=== PATIENT | female | born 1965 | race Caucasian/White ===

== ENCOUNTER 2016-08-17 19:34 | Observation (INO) | payer OTHER ==
[~2016-08-17] VITALS: Ht 162.6 cm; Wt 81.3 kg
[2016-08-17 19:36] VITALS: BP 121/81; PULSE 101; RESP 18; O2SAT 96
--- NOTE | 2016-08-17 19:46 | ED.REPORT ---
HPI-Chest Pain 40 and Over Date of Service Aug 17, 2016 ED Provider: Fiorella Gaston MDdavi Shankar, a 50 y/o female presents to the ER with the complaint of an intermittent stabbing chest pain, onset this afternoon. She states that she has felt generally ill for the past few days. Associated symptoms include SOB, nausea and headache. She denies cough, vomiting, fever, chills, diaphoresis, extremity swelling, and any recent immobilization or travel. She is a former smoker, but admits that she smoked a cigarette last night as she is stressed from school. Her father at the age of 55 due to LA. Nursing Notes Stated Complaint: CHEST PAIN Chief Complaint: Chest Pain Nursing Notes Reviewed: Yes Allergies: Coded Allergies: No Known Allergies (Unverified , 08/17/16) Scheduled Aspirin (Aspirin) 325 Mg Tablet 325 MG PO DAILY Scheduled PRN Temazepam (Temazepam) 15 Mg Capsule 15 MG PO HS PRN PRN Insomnia Trazodone (Trazodone) 50 Mg Tablet 50 MG PO HS PRN PRN Insomnia General Time Seen by MD: 19:40 Chief Complaint Chest pain Hx Obtained From: Patient Arrived By: Walk-in Sudden in Onset?: No Onset Occurred: 5 days ago Context of Onset: At rest Symptom Duration: Intermittent Location: : Chest left Quality: Stabbing Radiation: : Neck Severity: Current: Severe Severity: Maximum: Severe Associated with: Reports: Fatigue, Fever, Nausea, Shortness of Breath, Weakness , Denies: Diaphoresis, Vomiting Similar Sx Previous: No Risk Factors )( CAD Risk Stratification No Diabetes mellitus, No Hypertension Past Medical History Past Medical History Denies: Diabetes mellitus, Hypertension Family History Pt's father due to a LA Reports: Sudden cardiac Smoking History Former Smoker Social History Pt smoked last night due to school stress Ambulatory Status Independent Review of Systems Constitutional: Reports: Malaise, Denies: Chills, Fever Respiratory: Reports: Shortness of breath Cardiovascular: Reports: Chest pain GI: Reports: Nausea, Denies: Vomiting Musculoskeletal: Denies: Extremity swelling Skin: Denies Diaphoresis Neurologic: Reports: Headache Complete sys rev & neg: except as marked. Physical Exam Initial Vital Signs Vital Signs (First) Date Time Temp Pulse Resp B/P Pulse Ox O2 Delivery O2 Flow Rate FiO2 08/17/16 19:36 36.7 101 18 121/81 96 Room Air Initial VS: Reviewed Head / Eyes: Atraumatic, Normocephalic, PERRL Neck: Supple, Non-tender, Full range of motion Back: No CVA tenderness Extremities: Vascular intact, Neuro intact, No swelling, No tenderness Skin: Warm, Dry, No cyanosis Neurologic: Alert, Oriented, Nonfocal General/Constitutional: Awake, Alert, No acute distress, Well appearing Respiratory / Chest: Breath sounds NL, Breath sounds = bilat, No respiratory distress, No rales, No rhonchi, No wheezing, No stridor, No chest tenderness Cardiovascular: Heart rate NL, Regular rhythm, Heart sounds NL, No murmurs, Peripheral circulation NL, Pulses = bilaterally, No gross BP differential Neck: Supple, Full range of motion, No swelling, Non-tender, No masses, No JVD Back: Inspection NL, Non-tender, No CVA tenderness Lower Extremity / Pelvis / MS: Inspection NL, No swelling, Non-tender, No erythema, No deformity, Neurologic intact, Vascular intact, No edema Right Thigh: Positive: Ecchymosis present, Erythema present, Tenderness present... Skin: Color NL, Warm, Dry, Turgor NL Interpretation & Diagnostics Lab Results Interpretation Result Diagram: 08/17/16194508/17/161945 Test 08/17/16 19:46 White Blood Count 6.6th/mm3 (3.8-10.1) Red Blood Count 4.45mil/mm3 (3.90-5.20) Hemoglobin 13.8g/dL (12.0-15.6) Hematocrit 40.1% (35.0-46.0) Mean Corpuscular Volume 90.1fL (81-100) Mean Corpuscular Hemoglobin 31.0pg (27.0-35.0) Mean Corpuscular Hemoglobin Concent 34.4% (32.0-37.0) Red Cell Distribution Width 12.7% (12.3-15.4) Platelet Count 267bil/L (150-400) Neutrophils (%) (Auto) 38.5% (40-74) Lymphocytes (%) (Auto) 49.6% (14-46) Monocytes (%) (Auto) 6.4% (4-12) Eosinophils (%) (Auto) 4.7% (0-5) Basophils (%) (Auto) 0.6% (0-3) Sodium Level 137mEq/L (134-144) Potassium Level 4.0mEq/L (3.5-5.2) Chloride Level 100mEq/L (97-108) Carbon Dioxide Level 21mmol/L (18-29) Blood Urea Nitrogen 19mg/dL (6-24) Creatinine 0.80mg/dL (0.57-1.00) Estimat Glomerular Filtration Rate 110mL/min (>59) Glucose Level 113mg/dL (60-99) Calcium Level 9.7mg/dL (8.5-10.1) Magnesium Level 2.1mg/dL (1.6-2.6) Total Bilirubin 0.3mg/dL (0.0-1.2) Aspartate Amino Transf (AST/SGOT) 19U/L (0-50) Alanine Aminotransferase (ALT/SGPT) 15U/L (0-32) Alkaline Phosphatase 54U/L (25-150) Troponin T < 0.010ug/L (0.0-0.011) Total Protein 7.4g/dL (6.4-8.4) Albumin 4.4g/dL (3.4-5.0) Hold Bob Top Tube Received (Received) ECG Interpretation ECG Interpretation: Sinus rhythm, rate 87 T wave inversions v1-v4, aVR and lead [address] elevations Time: 19:47 Interpreted by: ED physician X-Ray Chest Interpretation Chest Xray Interpretation: IMPRESSION: No acute disease. Dictated by: Lester Thomas M.D. on 08/17/2016 at 20:18 Approved by: Lester Thomas M.D. on 08/17/2016 at 20:19 View: AP & lat Interpretation / Wet Read by: Interpret - Radiologist Re-Eval/Medical Decision Med Decision/Clinical Course 50-year-old female with past medical history of hypertension, tobacco abuse, family history concerning for ACS here with chest pain. Differential diagnosis includes but is not limited to ST elevation LA versus non-ST elevation LA versus pneumonia versus PE. The patient is PERC negative, I do not feel she requires PE workup at this time, as she has no risk factors. Her EKG is concerning with T-wave inversions in V3, V4, V5. I do not have an old EKG to compare it to. Given this, and admitted her to the hospitalist. Her CBC, CMP, troponin were unremarkable. She is aware and amenable to admission. She took a full-strength aspirin earlier today. Time of Eval: 19:51 Re-Evaluation/Progress Note: Discussed need for admission. Patient is amenable to the plan. Time of Eval: 20:54 Re-Evaluation/Progress Note: Rechecked pt. Pt continued to complain of severe CP. Discussed all labs results and the plan to admit. Consultation : Referral / Consult Name: Randall Hooks MD Consulted With: Hospitalist Call Returned at: 21:10 Videotape Sales Representative: Agrees with eval, Agrees with plan, Accepts admit Counseled Regarding: Diagnosis, Lab results, Need for admission Discharge & Departure Primary Impression: Chest pain Disposition: ADMITTED TO HOSPITAL Discharge Condition All VS Reviewed: Yes Condition: Stable Referrals: Fior Wilder (PCP) Linnette Attestation Portions of this note were transcribed by Arabella Vail and Linnette De León. I, personally performed the history, physical exam and medical decision-making; I reviewed and confirmed the accuracy of the information in the transcribed note. Signed by Linnette Fernandez, 08/17/2016and 21:23 copies to: Fior Wilder Rebecca A MD Aug 17, 2016 19:46 Arabella Vail Aug 17, 2016 19:54 KIMBERLEY SOLO Aug 17, 2016 20:27
[2016-08-17 19:58] LABS: BASOPHILS % (AUTO) 0.6 % (0-3); EOSINOPHILS % (AUTO) 4.7 % (0-5); MONOCYTES % (AUTO) 6.4 % (4-12); Mean Corpuscular Volume 90.1 fL (81-100); NEUTROPHILS % (AUTO) 38.5 % (40-74); Platelet Count 267 bil/L (150-400)
--- NOTE | 2016-08-17 20:20 | DRSVH ---
PROCEDURE: X-RAY CHEST, TWO VIEWS ([id number]) INDICATIONS: chest pain TECHNIQUE: 2 views of the chest were acquired. COMPARISON: [facility], CR, XR CHEST 2VW, 01/13/2016, 8:42. FINDINGS: Surgical changes and devices: None. Lungs and pleura: No pleural effusions or pneumothorax. Lungs are clear. Mediastinum: Mediastinal contours are normal. Heart size is normal. Bones and chest wall: No suspicious bony abnormalities. Soft tissues appear unremarkable. IMPRESSION: No acute disease. Dictated by: Lester Thomas M.D. on 08/17/2016 at 20:18 Approved by: Lester Thomas M.D. on 08/17/2016 at 20:19
[2016-08-17 20:29] LABS: TROPONIN T < 0.010 ug/L (0.0-0.011)
[2016-08-17 20:38] LABS: Magnesium 2.1 mg/dL (1.6-2.6)
[2016-08-17 20:45] VITALS: BP 104/59; PULSE 99; RESP 18; O2SAT 93
[2016-08-17] MEDS ORDERED: ASPI325T32 PO (21:02)
[2016-08-17] MEDS ORDERED: RES15 PO (21:02)
[2016-08-17] MEDS ORDERED: TRAZ-115 PO (21:02)
[2016-08-17] MEDS ORDERED: Alum-Mag Hydrox-Simeth 30 mL Suspension PO PRN ×2 (21:25→22:30)
[2016-08-17] MEDS ORDERED: Ondansetron 2 mg/mL 2 mL Inj IVPUSH PRN ×2 (21:25→22:30)
--- NOTE | 2016-08-17 22:02 | NUR ---
Admit Note Pt arrived to room 3017 at 2130 with spouse at bedside. Reporting 8/10 chest pain, nitro downstairs lowered BP.
[2016-08-17 22:30] VITALS: BP 117/77; PULSE 74; RESP 16; O2SAT 97
[2016-08-17] MEDS ORDERED: Polyethylene Glycol (PEG) 17 Gm Powder PO PRN (22:30)
[2016-08-17] MEDS ORDERED: 0.9% Sodium Chloride 1,000 ML IV ONE (22:30)
[2016-08-17 23:12] VITALS: BP 114/75; PULSE 71; RESP 14; O2SAT 99
--- NOTE | 2016-08-17 23:52 | PCM.HPMED ---
Subjective Date of Service Aug 17, 2016 Primary Provider: Admitting Physician: Randall Hooks MD Primary Care Physician: Fior Wilder Attending Physician: Randall Hooks MD Chief Complaint: chest pain History of Present Illness: 50yo lady with reported hx of htn. chest pain with dyspnea started earlier this morning. at rest. no known inciting factors. L substernal with radiation to L shoulder, arm. subsided somewhat but still there. at worst rated as moderate. pressure like. has had similar pain once before with reported negative workup. has had recent trip to [place] and back. no hx of gi issues, gerd. no hx of known muscle strain. Review of Systems: Positive Review of Symptoms mentioned and elaborated on in HPI. Head: Denies H/A, trauma, loss of consciousness. Eyes: Denies visual loss, diplopia. Ears: Denies: deafness, tinnitis, discharge, pain Nose: Denies discharge, obstruction, epistaxis Mouth: Denies sores, gingival bleeding, jaw pain Neck: Denies stiffness, issues swallowing. Respiratory: Denies cough, sputum. Cardiovascular: see hpi Denies palpitations, orthopnea, peripheral edema Gastrointestinal: Denies melena, abd pain, n/v/d Genitourinary: Denies dysuria, discharge. Skin: Denies: lesions, rashes, pruritus. Musculoskeletal: Denies joint pain, swelling or increased warmth. Neuro: Denies numbness, tingling, weakness. Psyc: Currently denies feelings of anxiety, depression. Allergies Coded Allergies: No Known Allergies (Unverified , 08/17/16) Home Medications see med rec PMH as described in hpi Surgical History hysterectomy Family History dad cad Social History Hx Alcohol Use: Yes Alcoholic Drinks Per Day: occassional Hx Substance Use: No Smoking Status: Former Smoker Exam Vital Signs Vital Sign - Last Date Time Temp Pulse Resp B/P Pulse Ox O2 Delivery O2 Flow Rate FiO2 08/17/16 23:12 71 14 114/75 99 Room Air 08/17/16 22:30 36.5 Exam General: No acute distress. Awake, alert. Head: Normocephalic, atraumatic. Eyes: White sclera. Conjunctiva non-injected. Mouth & Throat: No Bleeding. No erythema, lesions, exudates visualized. Neck: No tender adenopathy. Trachea midline. Respiratory: Clear to auscultation bilaterally. Symmetric chest expansion. Regular work of breathing without use of accessory muscles. Cardiovascular: S1, S2. Regular rate and rhythm without murmurs, rubs or gallops. Pulses 2+ equal bilaterally. tenderness along costochondral junctions b /l Abdomen: Normal bowel sounds x4 quadrants. Soft, non-tender, non-distended. Extremities: Intact. no joint effusions. no lower extremity tenderness, swelling , erythema or increased warmth. Skin: Intact, no lesions, no rash. Neurologic: Awake, alert, oriented x3. No focal deficits. Psychiatric: Appropriate mood and affect. Cooperative. Lab and Diagnostics Result Diagram: 08/17/16194508/17/161945 Assessment & Plan -- chest pain investigate for cardiac etiology serial troponins, echocardiogram, possible stress test in am. aspirin, statin, beta medardo if necessary and as tolerated prn morphine, nitro. cbc, bmp, magnesium, tsh, lipid panel, urine toxicology if cardiac etiologies ruled out will evaluate for alternative differentials. should there be any clinical change in the interm to suggest an alternate diagnosis this will also be pursued. repeat ekg, trop. stat cta chest -- htn antihypertensives as tolerated. -- f/e/n:npo in case of stress in am. monitor electrolytes -- dvt prophylaxis: lovenox Dipso: Admit to obs with expected length of stay < 2 midnights. Randall Hooks MD Aug 17, 2016 23:52
[2016-08-18] MEDS: 0.9% Sodium Chloride 1,000 ML IV SCH ×2 (00:11→11:07)
[2016-08-18 00:51] VITALS: PULSE 72
[2016-08-18 01:21] VITALS: BP 111/74; PULSE 75; RESP 16; O2SAT 99
[2016-08-18] MEDS ORDERED: Donnatal-Lido-Mylant 1:1:1 15 mL Syringe PO ONE (01:30)
[2016-08-18] MEDS ORDERED: Pantoprazole 4 mg/mL 10 mL Inj IVPUSH SCH (05:05)
[2016-08-18 05:38] VITALS: BP 99/65; PULSE 63; RESP 16; O2SAT 98
[2016-08-18 06:04] LABS: BASOPHILS % (AUTO) 0.5 % (0-3); EOSINOPHILS % (AUTO) 4.8 % (0-5); MONOCYTES % (AUTO) 10.9 % (4-12); Mean Corpuscular Hemoglobin 31.2 pg (27.0-35.0); NEUTROPHILS % (AUTO) 43.3 % (40-74); Platelet Count 255 bil/L (150-400)
--- NOTE | 2016-08-18 06:23 | NUR ---
Chest Pain Continues + vomit Pt continues to have CP ranging from 7-10/10 all through the night. MD aware. Giving Morphine q4hrs plus PRN break through requested. Pt also given malox and gi cocktail which she threw up. Requested IV med, once available pt was asleep so not given yet, will pass to dayshift to admin. Pt put on 2L NC for comfort as she states " I feel like I can't breath" o2 sats 97-90% on RA
[2016-08-18 06:34] LABS: Magnesium 2.2 mg/dL (1.6-2.6)
[2016-08-18 08:00] VITALS: PULSE 61
--- NOTE | 2016-08-18 08:25 | DRSVH ---
PROCEDURE: CT ANGIO CHEST PULMONARY EMBOLISM ([id number]) INDICATIONS: chest pain TECHNIQUE: After the administration of intravenous contrast, 2 mm thick sections acquired from the pulmonary api carlos to the posterior costophrenic angles. 3-dimensional maximum intensity projection (MIP) coronal a nd sagittal reformats were then acquired through the thorax. For radiation dose reduction, the follo wing was used: automated exposure control, adjustment of mA and/or kV according to patient size. COMPARISON: None. FINDINGS: Image quality: Excellent. Pulmonary arteries: Pulmonary arteries are normal in size, and demonstrate no intraluminal filling d efects to suggest central pulmonary embolism. Lungs and pleura: There is 2 mm nodule in the lateral right upper lobe on series 5 image 13. 3 mm nod ule is present in the right upper lobe on series 5 image 18. 6 mm right middle lobe nodule on series 5 image 27. 4 mm right middle lobe nodule is present on series 5 image 30. 3 mm nodule along the l eft major fissure on series 5 image 11. Mediastinum: Heart size is normal, without pericardial effusion. No mediastinal or hilar adenopathy . Thoracic aorta is normal in caliber and enhancement. Esophagus is normal in caliber, with mild hi atal hernia. Bones and chest wall: No suspicious bony lesions. Ribs and thoracic spine appear intact throughout. Thyroid gland is unremarkable. No axillary or supraclavicular adenopathy. Abdomen: Visualized upper abdominal solid organs appear normal in the early arterial phase of enhanc ement. IMPRESSION: 1. No pulmonary embolism. 2. Multiple bilateral subcentimeter pulmonary nodules. No priors are available for comparison. The y are nonspecific. Recommend followup as below. Fleischner Society criteria for SOLID lung nodule followup. Nodule size (mm)Low-risk patientHigh-risk patient<6 (single or multiple)No routine followup.Optional CT at 12 months. 6-8 (single or multiple)CT at 6-12 months, then optional CT at 18-24 mo.CT at 6-12 m onths, then CT at 18-24 months. >8 (single)CT, PET-CT, or biopsy at 3 months. Same as for low-risk p ts. >8 (multiple)CT at 3-6 months, then optional CT at 18-24 mo.CT at 3-6 months, then CT at 18-24 m onths. Recommendations do not apply to lung cancer screening, patients with immunosuppression, or patients w ith known primary cancer. Dictated by: Martha Cristina M.D. on 08/18/2016 at 8:00 Approved by: Martha Cristina M.D. on 08/18/2016 at 8:24
[2016-08-18 09:11] VITALS: BP 94/59; PULSE 64; RESP 18; O2SAT 95
--- NOTE | 2016-08-18 12:30 | NUR ---
Social Work: Screening Data: Pt is a 50 y/o female admitted for chest pain. Pt's PCP is Dr Wilder, pt's insurance is [employer]. EMR reviewed. Readmit score not listed. No d/c planning needs anticipated at this time. WEAPONS ENGINEER will continue to follow if needs arise. Assessment: Pt who is independent at baseline. Plan: Pt will d/c home via POV when medically stable. No d/c planning needs anticipated at this time. WEAPONS ENGINEER will continue to follow if needs arise. TOBI Dutton
[2016-08-18 12:40] VITALS: BP 109/64; PULSE 71; RESP 18; O2SAT 96
--- NOTE | 2016-08-18 15:41 | PCM.DIMED ---
Discharge Instructions Date of Service Aug 18, 2016 Dates of Hospitalization Aug 17, 2016 at 21:11 Discharge Diagnosis Discharge Diagnosis chest pain, musculoskeletal. Depression, insomnia Medication Instructions Please follow up with 2 weeks of o/p PT/OT for neck and pectoral muscle spasm. Please f/u with your PCP in 2 weeks Take Flexeril as needed for pain. Diet No restrictions Activity No restrictions Call your provider Fever or Chills, Shortness of breath, Bleeding, Chest pain, Vomitting, Excessive diarrhea, Weakness (unilateral), Other Patient Instructions Follow-up plan Follow up with PCP in 2 weeks PT/OT outpatient for 2 weeks for left side neck and pectoral muscle spasm Mindi Teran DO Aug 18, 2016 15:41
[2016-08-18] MEDS ORDERED: NPR500T PO (15:45)
[2016-08-18] MEDS ORDERED: CYCL10TA9 PO (15:46)
--- NOTE | 2016-08-18 16:04 | DRSVH ---
[facility] [address] [place] [address] Echocardiogram Report Name: JEWELL RODRIGUEZ JStudy Date: 08/18/2016 Height: 64 in Hospital Exam Location: [facility] Weight: 179 lb Gender: Female BSA: 1.9 m2 : 1965 Age: 50 yrs BP: 99/65 mmHg Reason For Study: CHEST PAIN Ordering Physician: HOSPITALIST [facility] Performed By: Micaela Baumann Referring Physician: BAM Wilder Interpretation Summary The ejection fraction is estimated to be 60-65%. The right ventricle is mildly dilated. There is trace mitral regurgitation. Right ventricular size has increased since the prior echo exam. Procedure: A two-dimensional transthoracic echocardiogram with color flow and Doppler was performed. The study quality was technically adequate. Comparison is made with the echocardiogram of 01-25-2016. The patient was in normal sinus rhythm during the exam. Left Ventricle: The left ventricle is normal in size, wall thickness, and systolic function without any focal wall motion abnormalities. The ejection fraction is estimated to be 60-65%. Spectral Doppler of the mitral valve shows a normal E/A wave ratio. Right Ventricle: The right ventricle is mildly dilated. Right ventricular size has increased since the prior echo exam. The right ventricular systolic function is normal. Atria: Both atria are normal in size. There is no Doppler evidence for an atrial septal defect. Mitral Valve: The mitral valve leaflets appear normal. There is no evidence of stenosis, fluttering, or prolapse. There is trace mitral regurgitation. Aortic Valve: The aortic valve is trileaflet. The aortic valve opens well. No aortic regurgitation is present. Tricuspid Valve: The tricuspid valve leaflets are thin and pliable. There is a trace or physiologic amount of tricuspid regurgitation. Pulmonic Valve: The pulmonic valve leaflets are thin and pliable; valve motion is normal. There is a trace or physiologic amount of pulmonic regurgitation. Great Vessels: The aortic root is mildly dilated. The ascending aorta is mildly enlarged. The pulmonary artery is normal size. The IVC is of normal diameter and collapses greater than 50% with a sniff. This suggests a low right atrial pressure of 3 mm Hg. Pericardium/ Pleura There is no pericardial effusion. There is no pleural effusion. MMode/2D Measurements & Calculations LVIDd: 4.7 cm LA dimension: 3.8 cm RA long axis LVOT diam: 2.0 cm LVIDs: 3.1 cm AoV Opening FS: 34.2 % LA A2 area: 17.6 cm RA area EPSS: 0.16 cm LA A4 area: 19.4 cm Ao root diam IVSd: 1.0 cm LA length (vol) : 19.5 cm LVPWd: 0.87 cm RA vol asc Aorta Diam LA vol: 54.6 ml : 58.0 ml LA vol index RA Ao Arch Diam (Prox : 31.1 mm/ Trans): 2.8 cm : 29.2 ml/m2 RVDd major : 6.9 cm LV sherwood. diameter/BSA LV sys. diameter/BSA RVD2 (mid) (cm/m^2): 2.5 (cm/m^2): 1.7 : 4.8 cm Doppler Measurements & Calculations Ao V2 max MV E max otto MV E/A: 1.3 TR max otto : 142.8 cm/sec : 63.8 cm/sec Med Peak E' Otto : 206.2 cm/sec Ao max P.2 mmHg MV A max otto TR max PG Ao mean P.3 mmHg : 48.5 cm/sec E/E' med: 12.4 : 17.0 mmHg LVOT Max Otto MV P1/2t: 75.4 msec Lat Peak E' Otto PA V2 max : 101.9 cm/sec : 68.7 cm/sec ROBERTO(I,D): 2.3 cm E/E' lat: 6.9 PA mean PG sev ratio: 0.75 E/e' average PA Accel Time Pulm A Revs Dur : 0.15 sec MV A dur : 0.14 sec MV P1/2t max otto Ao V2 mean LV V1 max PG PA V2 mean : 98.2 cm/sec : 51.0 cm/sec MVA(P1/2t): 2.9 cm2 Ao V2 VTI: 29.4 cm LV V1 VTI ROBERTO(V,D): 2.2 cm2 : 21.9 cm ROBERTO indexed to BSA Gabriella Vargas Dur - MV (cm^2/m^2): 1.2 A Dur: -0.02 msec Electronically signed by: Mychal Dumont on Reading Physician:08/18/2016 04:04 PM
--- NOTE | 2016-08-18 17:56 | NUR ---
Discharge Reviewed d/c instructions with pt including care notes and new prescriptions, pt signed and given originals, copies to chart. IV d/c intact, tele removed. VS stable at this time. All belongings packed by pt in room, pt dressed and ready to go. Pt to pick her up soon. Care continues until she gets picked up. Addendum: 08/18/16 at 1837 by JENELLE SANCHES RN pt walked off unit accompanied by her , all belongings taken with them. Pt to drive her home, VS stable at d/c.
--- NOTE | 2016-08-18 21:11 | DRSVH ---
PROCEDURE: EITHER REST OR STRESS ONLY. Exercise myocardial perfusion SPECT with gated imaging and e jection fraction RADIOPHARMACEUTICAL: 22.7 mCi Tc-99m tetrofosmin IV at peak exercise. INDICATIONS: CHEST PAIN TECHNIQUE: Radiopharmaceutical was injected at peak stress test. SPECT images were obtained, with p erfusion images in short axis, horizontal long axis, and vertical long axis views. Gated images were reviewed using [employer] software. COMPARISON: None. CARDIAC STRESS: A standard Ramesh treadmill exercise tolerance test was performed by the patient unde r the supervision of attending staff. The patient exercised for 9 minutes and 1 second; functional a erobic impairment (DIONISIO) was -8%. Hemodynamic Data: Baseline blood pressure was 94/60. Peak blood pressure was 212/64. The patient a chieved 84% of target heart rate. Symptoms: The patient has baseline chest discomfort, which did not get worse during exercise, howeve r, became sharp and more severe in recovery, and then resolved. EKG: Baseline rhythm was sinus with flat ST segment and T-wave inversion in the anteroinferior leads , which got little bit more pronounced during exercise. No significant arrhythmias were seen. FINDINGS: Raw Data: There appears to be adequate myocardial uptake. Breast shadow was seen. Left Ventricular Function: Stress LV ejection fraction 85%. Stress LV end diastolic volume 67 mL. I do not see any obvious wall motion abnormalities. Myocardial Perfusion: Stress supine images revealed mildly decreased perfusion of the inferoapex, wh ich resolved during prone images, suggestive of diaphragmatic tissue attenuation artifact. Prone anisha ges revealed normal myocardial perfusion. IMPRESSION: This is a normal myocardial perfusion study. The patient walked on Ramesh protocol for 9 minutes and 11 seconds with functional aerobic impairment of -8%. There are baseline electrocardiog lars changes. The patient has baseline chest discomfort, which did not get worse during stress. No s ignificant arrhythmias were seen. As far as the perfusion scan is concerned, this is a low-risk myoc ardial perfusion scan. Dictated by: Ciera Abarca M.D. on 08/18/2016 at 15:13 Transcribed by: TONO on 08/19/2016 at 0:11 Approved by: Ciera Abarca M.D. on 08/22/2016 at 16:55
--- NOTE | 2016-08-22 10:24 | PCM.DC.MED ---
Discharge Summary Date of Service Aug 18, 2016 Dates of Hospitalization Date of Hospital Admission Aug 17, 2016 at 21:11 Date of Discharge: Aug 18, 2016 Providers: Admitting Physician: Randall Hooks MD Primary Care Physician: Fior Wilder Attending Physician: Randall Hooks MD Diagnosis at Time of Discharge Diagnosis at Time of Discharge chest pain, musculoskeletal. Depression, insomnia Consultations None Procedures XRay, CTs & MRIs [facility] [place] [address] Patient Name: JEWELL RODRIGUEZ MR#: [id number] Location: [facility] [place] Ordering Phys: Mindi Cam DO Date of Service: 08/18/16 1001 Caution: Report not yet finalized and possibly incomplete! PROCEDURE: EITHER REST OR STRESS ONLY. Exercise myocardial perfusion SPECT with gated imaging and ejection fraction RADIOPHARMACEUTICAL: 22.7 mCi Tc-99m tetrofosmin IV at peak exercise. INDICATIONS: CHEST PAIN TECHNIQUE: Radiopharmaceutical was injected at peak stress test. SPECT images were obtained, with perfusion images in short axis, horizontal long axis, and vertical long axis views. Gated images were reviewed using [employer] software. COMPARISON: None. CARDIAC STRESS: A standard Ramesh treadmill exercise tolerance test was performed by the patient under the supervision of attending staff. The patient exercised for 9 minutes and 1 second; functional aerobic impairment (DIONISIO) was -8 %. Hemodynamic Data: Baseline blood pressure was 94/60. Peak blood pressure was 212/64. The patient achieved 84% of target heart rate. Symptoms: The patient has baseline chest discomfort, which did not get worse during exercise, however, became sharp and more severe in recovery, and then resolved. EKG: Baseline rhythm was sinus with flat ST segment and T-wave inversion in the anteroinferior leads, which were a little bit more pronounced during exercise. No significant arrhythmias were seen. FINDINGS: Raw Data: There appears to be adequate myocardial uptake. Breast shadow was seen. Left Ventricular Function: Stress LV ejection fraction 85%. Stress LV end diastolic volume 67 mL. I do not see any obvious wall motion abnormalities. Myocardial Perfusion: Stress supine images revealed mildly decreased perfusion of the inferoapex, which resolved during prone images, suggestive of diaphragmatic tissue attenuation artifact. Prone images revealed normal myocardial perfusion. IMPRESSION: This is a normal myocardial perfusion study. The patient walked on Ramesh protocol for 9 minutes and 11 seconds with functional aerobic impairment of -8%. There are baseline electrocardiogram changes. The patient has baseline chest discomfort, which did not get worse during stress. No significant arrhythmias were seen. As far as the perfusion scan is concerned, this is a low-risk myocardial perfusion scan. Dictated by: Ciera Abarca M.D. on 08/18/2016 at 15:13 Transcribed by: TONO on 08/19/2016 at 0:[address] [facility] [place] [address] Patient Name: JEWELL RODRIGUEZ MR#: [id number] Location: [facility] [place] Ordering Phys: Randall Hooks MD Date of Service: 08/17/162224 PROCEDURE: CT ANGIO CHEST PULMONARY EMBOLISM ([id number]) INDICATIONS: chest pain TECHNIQUE: After the administration of intravenous contrast, 2 mm thick sections acquired from the pulmonary apices to the posterior costophrenic angles. 3-dimensional maximum intensity projection (MIP) coronal and sagittal reformats were then acquired through the thorax. For radiation dose reduction, the following was used: automated exposure control, adjustment of mA and/or kV according to patient size. COMPARISON: None. FINDINGS: Image quality: Excellent. Pulmonary arteries: Pulmonary arteries are normal in size, and demonstrate no intraluminal filling defects to suggest central pulmonary embolism. Lungs and pleura: There is 2 mm nodule in the lateral right upper lobe on series 5 image 13. 3 mm nodule is present in the right upper lobe on series 5 image 18. 6 mm right middle lobe nodule on series 5 image 27. 4 mm right middle lobe nodule is present on series 5 image 30. 3 mm nodule along the left major fissure on series 5 image 11. Mediastinum: Heart size is normal, without pericardial effusion. No mediastinal or hilar adenopathy. Thoracic aorta is normal in caliber and enhancement. Esophagus is normal in caliber, with mild hiatal hernia. Bones and chest wall: No suspicious bony lesions. Ribs and thoracic spine appear intact throughout. Thyroid gland is unremarkable. No axillary or supraclavicular adenopathy. Abdomen: Visualized upper abdominal solid organs appear normal in the early arterial phase of enhancement. IMPRESSION: 1. No pulmonary embolism. 2. Multiple bilateral subcentimeter pulmonary nodules. No priors are available for comparison. They are nonspecific. Recommend followup as below. Fleischner Society criteria for SOLID lung nodule followup. Nodule size (mm)Low-risk patientHigh-risk patient<6 (single or multiple)No routine followup.Optional CT at 12 months. 6-8 (single or multiple)CT at 6-12 months, then optional CT at 18-24 mo.CT at 6-12 months, then CT at 18-24 months. >8 (single)CT, PET-CT, or biopsy at 3 months. Same as for low-risk pts. >8 (multiple)CT at 3-6 months, then optional CT at 18-24 mo.CT at 3-6 months, then CT at 18-24 months. Recommendations do not apply to lung cancer screening, patients with immunosuppression, or patients with known primary cancer. Dictated by: Martha Cristina M.D. on 08/18/2016 at 8:00 Approved by: Martha Cristina M.D. on 08/18/2016 at 8:[address] [facility] [place] [address] Patient Name: JEWELL RODRIGUEZ MR#: [id number] Location: [facility] [place] Ordering Phys: Fiorella Gaston MD Date of Service: 08/17/161951 PROCEDURE: X-RAY CHEST, TWO VIEWS ([id number]) INDICATIONS: chest pain TECHNIQUE: 2 views of the chest were acquired. COMPARISON: [facility], CR, XR CHEST 2VW, 01/13/2016, 8:42. FINDINGS: Surgical changes and devices: None. Lungs and pleura: No pleural effusions or pneumothorax. Lungs are clear. Mediastinum: Mediastinal contours are normal. Heart size is normal. Bones and chest wall: No suspicious bony abnormalities. Soft tissues appear unremarkable. IMPRESSION: No acute disease. Dictated by: Lester Thomas M.D. on 08/17/2016 at 20:18 Approved by: Lester Thomas M.D. on 08/17/2016 at 20:19 Cardiac Echo Imp[address] [facility] Diagnostic [place] [address] Patient Name: JEWELL RODRIGUEZ MR#: [id number] Location: [facility] [place] Ordering Phys: Randall Hooks MD Date of Service: 08/18/16 0800 [facility] [address] [place] [address] Echocardiogram Report Name: JEWELL RODRIGUEZ JStudy Date: 08/18/2016 Height: 64 in Hospital Exam Location: [facility] Weight: 179 lb Gender: Female BSA: 1.9 m2 : 1965 Age: 50 yrs BP: 99/65 mmHg Reason For Study: CHEST PAIN Ordering Physician: HOSPITALIST [facility] Performed By: Micaela Baumann Referring Physician: BAM Wilder Interpretation Summary The ejection fraction is estimated to be 60-65%. The right ventricle is mildly dilated. There is trace mitral regurgitation. Right ventricular size has increased since the prior echo exam. Procedure: A two-dimensional transthoracic echocardiogram with color flow and Doppler was performed. The study quality was technically adequate. Comparison is made with the echocardiogram of 01-25-2016. The patient was in normal sinus rhythm during the exam. Left Ventricle: The left ventricle is normal in size, wall thickness, and systolic function without any focal wall motion abnormalities. The ejection fraction is estimated to be 60-65%. Spectral Doppler of the mitral valve shows a normal E/A wave ratio. Right Ventricle: The right ventricle is mildly dilated. Right ventricular size has increased since the prior echo exam. The right ventricular systolic function is normal. Atria: Both atria are normal in size. There is no Doppler evidence for an atrial septal defect. Mitral Valve: The mitral valve leaflets appear normal. There is no evidence of stenosis, fluttering, or prolapse. There is trace mitral regurgitation. Aortic Valve: The aortic valve is trileaflet. The aortic valve opens well. No aortic regurgitation is present. Tricuspid Valve: The tricuspid valve leaflets are thin and pliable. There is a trace or physiologic amount of tricuspid regurgitation. Pulmonic Valve: The pulmonic valve leaflets are thin and pliable; valve motion is normal. There is a trace or physiologic amount of pulmonic regurgitation. Great Vessels: The aortic root is mildly dilated. The ascending aorta is mildly enlarged. The pulmonary artery is normal size. The IVC is of normal diameter and collapses greater than 50% with a sniff. This suggests a low right atrial pressure of 3 mm Hg. Pericardium/ Pleura There is no pericardial effusion. There is no pleural effusion. MMode/2D Measurements & Calculations LVIDd: 4.7 cm LA dimension: 3.8 cm RA long axis LVOT diam: 2.0 cm LVIDs: 3.1 cm AoV Opening FS: 34.2 % LA A2 area: 17.6 cm RA area EPSS: 0.16 cm LA A4 area: 19.4 cm Ao root diam IVSd: 1.0 cm LA length (vol) : 19.5 cm LVPWd: 0.87 cm RA vol asc Aorta Diam LA vol: 54.6 ml : 58.0 ml LA vol index RA Ao Arch Diam (Prox : 31.1 mm/ Trans): 2.8 cm : 29.2 ml/m2 RVDd major : 6.9 cm LV sherowod. diameter/BSA LV sys. diameter/BSA RVD2 (mid) (cm/m^2): 2.5 (cm/m^2): 1.7 : 4.8 cm Doppler Measurements & Calculations Ao V2 max MV E max otto MV E/A: 1.3 TR max otto : 142.8 cm/sec : 63.8 cm/sec Med Peak E' Otto : 206.2 cm/sec Ao max P.2 mmHg MV A max otto TR max PG Ao mean P.3 mmHg : 48.5 cm/sec E/E' med: 12.4 : 17.0 mmHg LVOT Max Otto MV P1/2t: 75.4 msec Lat Peak E' Otto PA V2 max : 101.9 cm/sec : 68.7 cm/sec ROBERTO(I,D): 2.3 cm E/E' lat: 6.9 PA mean PG sev ratio: 0.75 E/e' average PA Accel Time Pulm A Revs Dur : 0.15 sec MV A dur : 0.14 sec MV P1/2t max otto Ao V2 mean LV V1 max PG PA V2 mean : 98.2 cm/sec : 51.0 cm/sec MVA(P1/2t): 2.9 cm2 Ao V2 VTI: 29.4 cm LV V1 VTI ROBERTO(V,D): 2.2 cm2 : 21.9 cm ROBERTO indexed to BSA Pulm A Revs Dur - MV (cm^2/m^2): 1.2 A Dur: -0.02 msec Electronically signed by: Mychal Dumont on Reading Physician:08/18/2016 04:04 PM Brief History 50yo lady with reported hx of htn presented with chest pain with dyspnea started earlier on the morning of arrival, occured at rest. She had no known inciting factors. Location is L substernal with radiation to L shoulder, arm. subsided somewhat but still there. Says at worst rated as moderate. pressure like. She has had similar pain once before with reported negative workup. She has had recent trip to [place] and back. She offers no hx of gi issues, gerd, or of known muscle strain. Hospital Course Assessment #1 chest pain POA -- serial troponins were ruled out. Stress test in the AM showed no acute concerns. low risk myocardial perfusion scan, Echo cardiogram showed slight increase in RV size from before. This is likely due to her hypertension. PCP is requested to monitor in the future for clinical symptoms and follow up accordingly. -- CTA Chest PE protocol was negative. Musculoskeletal pain in left neck and shoudler: -- Flexeril and naproxen were given. Chronic: Hypertension -- Home medication/antihypertensives Exam Vital Signs (Last) Date Time Temp Pulse Resp B/P Pulse Ox O2 Delivery O2 Flow Rate FiO2 08/18/16 12:40 36.5 71 18 109/64 96 Room Air Exam General: NAD HEENT: NCAT Eyes: [place] conjunctivae. No ptosis, PERRL Neck: No masses, trachea midline, no thyromegaly Lungs: CTA with normal respiratory effort CV: RRR, no murmurs/rubs/gallops, normal PMI GI: Soft, non-tender with no hepatosplenomegaly MSK: Tenderness reproduced with ROM tests of L-side of neck and L arm. Pain was relieved with Muscle energy technique. Skin: Warm and dry. No rash, lesions or ulcers Psych: A&O X3, with appropriate affect Test 08/17/16 19:46 08/18/16 05:30 08/18/16 14:35 Hold Bob Top Tube Received (Received) White Blood Count 5.8th/mm3 (3.8-10.1) Red Blood Count 4.01mil/mm3 (3.90-5.20) Hemoglobin 12.5g/dL (12.0-15.6) Hematocrit 36.5% (35.0-46.0) Mean Corpuscular Volume 91.0fL (81-100) Mean Corpuscular Hemoglobin 31.2pg (27.0-35.0) Mean Corpuscular Hemoglobin Concent 34.2% (32.0-37.0) Red Cell Distribution Width 13.0% (12.3-15.4) Platelet Count 255bil/L (150-400) Neutrophils (%) (Auto) 43.3% (40-74) Lymphocytes (%) (Auto) 40.3% (14-46) Monocytes (%) (Auto) 10.9% (4-12) Eosinophils (%) (Auto) 4.8% (0-5) Basophils (%) (Auto) 0.5% (0-3) Sodium Level 141mEq/L (134-144) Potassium Level 4.4mEq/L (3.5-5.2) Chloride Level 104mEq/L (97-108) Carbon Dioxide Level 24mmol/L (18-29) Blood Urea Nitrogen 16mg/dL (6-24) Creatinine 0.67mg/dL (0.57-1.00) Estimat Glomerular Filtration Rate 135mL/min (>59) Glucose Level 95mg/dL (60-99) Calcium Level 9.5mg/dL (8.5-10.1) Magnesium Level 2.2mg/dL (1.6-2.6) Total Bilirubin 0.4mg/dL (0.0-1.2) Aspartate Amino Transf (AST/SGOT) 15U/L (0-50) Alanine Aminotransferase (ALT/SGPT) 12U/L (0-32) Alkaline Phosphatase 44U/L (25-150) Total Protein 6.2g/dL (6.4-8.4) Albumin 3.9g/dL (3.4-5.0) Triglycerides Level 110mg/dL (0-149) Cholesterol Level 212mg/dL (100-199) LDL Cholesterol, Calculated 141.000mg/dL (0-99) VLDL Cholesterol 22.000mg/dL HDL Cholesterol 49mg/dL (>39) Cholesterol/HDL Ratio 4.33 (0.0-4.4) Thyroid Stimulating Hormone (TSH) 2.760uIU/mL (0.450-4.500) Troponin T < 0.010ug/L (0.0-0.011) Discharge Medications Discharge Medications Aspirin (Aspirin) 325 Mg Tablet 325 MG PO DAILY (Reported) As needed Cyclobenzaprine (Cyclobenzaprine) 10 Mg Tablet 10 MG PO BID PRN PRN Spasm Prescribed by: MINDI CAM DO Naproxen (Naproxen) 500 Mg Tab 500 MG PO BID PRN PRN For Pain Prescribed by: MINDI CAM DO Temazepam (Temazepam) 15 Mg Capsule 15 MG PO HS PRN PRN Insomnia (Reported) Trazodone (Trazodone) 50 Mg Tablet 50 MG PO HS PRN PRN Insomnia (Reported) Additional med instructions Please follow up with 2 weeks of o/p PT/OT for neck and pectoral muscle spasm. Please f/u with your PCP in 2 weeks Take Flexeril as needed for pain. Followup Plan Follow-up plan Follow up with PCP in 2 weeks PT/OT outpatient for 2 weeks for left side neck and pectoral muscle spasm Discharge Diet: No restrictions Discharge Activity: No restrictions Mindi Cam DO Aug 18, 2016 15:47
== END 2016-08-18 18:41 | disposition home or self-care (01) ==
LOC: SED 19:34 → MPC 21:11 → INTOOBSV 21:11 → OBSVTOIN 21:11
PROVIDERS: ADMIT Family Medicine; ATTEND Family Medicine
DX: R07.89 Other chest pain (principal); F32.9 Major depressive disorder, single episode, unspecified; G47.00 Insomnia, unspecified; M25.512 Pain in left shoulder; M54.2 Cervicalgia; I10 Essential (primary) hypertension; F17.210 Nicotine dependence, cigarettes, uncomplicated; Z90.710 Acquired absence of both cervix and uterus; Z79.82 Long term (current) use of aspirin; Z82.3 Family history of stroke

== ENCOUNTER 2016-10-03 09:35 | Day surgery (SDC) | payer OTHER ==
[~2016-10-03] VITALS: Ht 162.6 cm; Wt 79.0 kg
[~2016-10-03 09:35] MED LIST: 0.9% Sodium Chloride 1,000 ML IV SCH; ASPI325T32 PO; CYCL10TA9 PO; NPR500T PO; RES15 PO; Sodium Chloride LOK Flush 10 mL Syringe IV PRN; TRAZ-115 PO; fentaNYL-PF 50 mCg/mL 2 mL Inj IVPUSH PRN
[2016-10-03 10:03] VITALS: BP 104/70; PULSE 76; RESP 16; O2SAT 97
--- NOTE | 2016-10-03 11:02 | PCM.ENDEGD ---
EGD Date of Service: October 03, 2016 Physician Kendall Cornejo MD Pre Procedure Diagnosis: Dysphagia Post Procedure Dx & Findings: Gastritis esophagitis Procedure Esophagogastroduodenoscopy PROCEDURE IN DETAIL: After proper sedation, Olympus video endoscope was inserted into patient's mouth and esophagus was successfully intubated. Scope introduced esophagus. Esophagus showed normal shiny whitish mucosa consistent with squamous cell component. Z line was intact at 40 cm from the incisors. However is some redness and edema noted. Biopsies obtained. Also due to the history of dysphagia, mid esophageal biopsies obtained and placed in the same bottle as the rest of the esophagus. Scope further advanced to the stomach. Stomach showed redness and edema with mucosal atrophy consistent with gastropathy. Multiple biopsies obtained. Some bilious material noted in the stomach. Cardia fundus body antrum pylorus were all visualized. Retroflexion was done. Stomach was easily inflated and deflatable using air. Scope further events to the distal duodenum. Duodenum revealed normal villous structures with normal appearing folds without any mass ulcer erosion. Impression Esophagitis Gastritis with bilious material No clear cause of dysphagia. Recommendation Await biopsies Follow up in GI clinic. Presedation Assessment Risks and Benefits Informed consent was obtained from the patient after all risks and benefits including but not limited to drug reaction, infection, pain, bleeding, perforation, as well as alternatives were discussed. Patient monitoring Continuous pulse oximetry, cardiac monitoring, blood pressure monitoring, IV access, and oxygen at 2L per nasal cannula. Periprocedural Fentanyl: Fentanyl 100mcg Incrementally Midazolam: Midazolam 5mg Incrementally Complications There were no periprocedural complications identified. Post Procedure Plan Post Procedure Recommendations 1. Restrict activities today. 2. Resume normal activities in the morning. 3. Resume medications. 4. GERD behavioral modification: - Avoid fatty, acidic, spicy, large meals - Do not lie down after meals - Do not eat or drink anything for at least 2 1/2 hours before going to bed at night - Discontinue tobacco and alcohol - Decrease or avoid caffeine - Avoid chocolate and mints - Decrease weight - Avoid aspirin and non steroidal anti-inflammatory agents (NSAID) such as Aleve, Advil, Mobic, Naproxen, Ibuprofen, etc 5. Add proton pump inhibitor. Take 30 minutes before 1st meal of the day. 6. Patient informed of normal post procedure side effects as bloating, drowsiness, blood streaking in the stool 7. If gastric biopsy reveal H.pylori, continue with appropriate treatment 8. If small bowel biopsy reveals celiac, continue with appropriate treatment 9. Please don't hesitate to call me with any questions Kendall Cornejo MD October 03, 2016 11:02
[2016-10-03 11:07] VITALS: BP 94/65; PULSE 78; RESP 14; O2SAT 93
[2016-10-03 11:16] VITALS: BP 111/74; PULSE 76; RESP 16; O2SAT 94
[2016-10-03 11:26] VITALS: BP 97/66; PULSE 80; RESP 16; O2SAT 95
--- NOTE | 2016-10-04 11:26 | PATH ---
SURGICAL PATHOLOGY Attending Physician:Kendall Cornejo M.D. CASE STATUS: Signed Out PATIENT NAME: JEWELL RODRIGUEZ . PID: [id number] : 1965 DATE COLLECTED:10/03/2016 21:33 SPECIMEN: 1: Gastric, Biopsy 2: Esophagus, Biopsy CLINICAL HISTORY: 1). GASTRIC EROSIONS BIOPSY 2). ESOPHAGEAL BIOPSY FINAL DIAGNOSIS: 1.GASTRIC EROSIONS BIOPSY: REACTIVE GASTROPATHY WITH FOCAL EROSION. Negative for Helicobacter organisms. Negative for intestinal metaplasia. Negative for dysplasia and malignancy. 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 MILD CHRONIC ACTIVE INFLAMMATION. Negative for dysplasia and malignancy. ICD10 K29.70 K22.70 K21.0 GROSS DESCRIPTION: The specimen is received in two formalin filled containers labeled with the patient's name. 1). The specimen is sublabeled "gastric erosion" and consists of 4 portions of tissue which aggregate to 0.4 x 0.3 x 0.3 CM. The specimen is entirely submitted in cassettes 1A. 2). The specimen is sublabeled "esophageal" and consists of 4 extremely tiny portions of tissue which aggregate to 0.3 x 0.2 x 0.2 CM. The specimen is entirely submitted in cassette 2A. 10/03/2016 [facility] MICRO DESCRIPTION: See diagnosis. ICD-9 CODES: CPT CODES: 1: 34661 2: 35750 Electronically Signed Out Jeri Davis MD [facility] Pathology [facility] [address], [place] [address] Technical component performed at [facility], [facility] [address], [place], [address]
== END 2016-10-03 23:59 | disposition home or self-care (01) ==
LOC: END 09:35
PROVIDERS: ATTEND Internal Medicine
DX: K22.70 Barrett's esophagus without dysplasia (principal); K31.9 Disease of stomach and duodenum, unspecified; K29.70 Gastritis, unspecified, without bleeding; K20.9 Esophagitis, unspecified; Z79.82 Long term (current) use of aspirin
CPT/HCPCS: 43239; G0500; J7030

== ENCOUNTER 2016-11-08 12:07 | Day surgery (SDC) | payer OTHER ==
[~2016-11-08 12:07] MED LIST changes: -0.9% Sodium Chloride 1,000 ML IV SCH; -Sodium Chloride LOK Flush 10 mL Syringe IV PRN; -fentaNYL-PF 50 mCg/mL 2 mL Inj IVPUSH PRN
[2016-11-08] MEDS ORDERED: Lidocaine Topical 2% 30 mL Jelly ONE (12:48)
== END 2016-11-08 23:59 | disposition home or self-care (01) ==
LOC: END 12:07
PROVIDERS: ATTEND Internal Medicine
DX: R13.10 Dysphagia, unspecified (principal)

== ENCOUNTER 2016-12-29 11:01 | Day surgery (SDC) | payer OTHER ==
[~2016-12-29] VITALS: Ht 160 cm; Wt 77.1 kg
[~2016-12-29 11:01] MED LIST changes: +OMEP40CA36 PO; +Sodium Chloride LOK Flush 10 mL Syringe IV PRN; +fentaNYL-PF 50 mCg/mL 2 mL Inj IVPUSH PRN
[2016-12-29 12:10] VITALS: BP 103/68; PULSE 66; RESP 16; O2SAT 97
[2016-12-29] MEDS: 0.9% Sodium Chloride 1,000 ML IV SCH ×2 (12:15→12:42)
--- NOTE | 2016-12-29 13:17 | PCM.ENDEGD ---
EGD Date of Service: Dec 29, 2016 Physician Kendall Cornejo MD Pre Procedure Diagnosis: Dysphagia Post Procedure Dx & Findings: Dilated up to 2 cm. Procedure Esophagogastroduodenoscopy PROCEDURE IN DETAIL: After proper sedation, Olympus video endoscope was inserted into patient's mouth and esophagus was successfully intubated. Scope introduced esophagus. Esophagus showed normal shiny whitish mucosa consistent with squamous cell component. Z line was intact at 40 cm from the incisors. Stomach further advanced to the stomach. Stomach showed normal shiny mucosa with normal appearing rugae folds without any ulcer mass erosion. Cardia fundus body antrum pylorus were all visualized. Retroflexion was done. Stomach was easily inflated and deflatable using air. Scope further advanced to the distal duodenum. Duodenum revealed normal villous structures with normal appearing folds without any mass ulcer erosion. Using balloon dilation was started from 13 mm 14 mm 15 mm. At each interval, we spent about 15 seconds. At 15 mm, we spent 30 seconds. No mucosa tear noted. We took another balloon and dilated up to 18 and 19 mm and 20 mm. At each in her voice and 15 seconds. At 20 mm, we spent 30 seconds. No mucosal tear noted. Impression Dilation was done. No mucosal tear achieved. Presedation Assessment Risks and Benefits Informed consent was obtained from the patient after all risks and benefits including but not limited to drug reaction, infection, pain, bleeding, perforation, as well as alternatives were discussed. Patient monitoring Continuous pulse oximetry, cardiac monitoring, blood pressure monitoring, IV access, and oxygen at 2L per nasal cannula. Periprocedural Fentanyl: Fentanyl 125mcg Incrementally Midazolam: Midazolam 6mg Incrementally Complications There were no periprocedural complications identified. Post Procedure Plan Post Procedure Recommendations 1. Restrict activities today. 2. Resume normal activities in the morning. 3. Resume medications. 4. GERD behavioral modification: - Avoid fatty, acidic, spicy, large meals - Do not lie down after meals - Do not eat or drink anything for at least 2 1/2 hours before going to bed at night - Discontinue tobacco and alcohol - Decrease or avoid caffeine - Avoid chocolate and mints - Decrease weight - Avoid aspirin and non steroidal anti-inflammatory agents (NSAID) such as Aleve, Advil, Mobic, Naproxen, Ibuprofen, etc 5. Add proton pump inhibitor. Take 30 minutes before 1st meal of the day. 6. Patient informed of normal post procedure side effects as bloating, drowsiness, blood streaking in the stool 7. If gastric biopsy reveal H.pylori, continue with appropriate treatment 8. If small bowel biopsy reveals celiac, continue with appropriate treatment 9. Please don't hesitate to call me with any questions Kendall Cornejo MD Dec 29, 2016 13:17
[2016-12-29 13:20] VITALS: BP 105/68; PULSE 76; RESP 14; O2SAT 92
[2016-12-29 13:30] VITALS: BP 102/66; PULSE 75; RESP 16; O2SAT 96
== END 2016-12-29 23:59 | disposition home or self-care (01) ==
LOC: END 11:01
PROVIDERS: ATTEND Internal Medicine
DX: R13.10 Dysphagia, unspecified (principal)
CPT/HCPCS: 43249; 99153; G0500; J2250; J3010; J7030